=== PATIENT | male | born 1970 | race Caucasian/White ===

== ENCOUNTER → 2021-04-27 | Day surgery (SDC) | payer OTHER, MEDICARE ==
[~2021-04-27] MED LIST: ALLOPURINOL 10100 M3 PO; ATORVASTATIN CA80 MG PO; BAYER CHEWABLE81 MG PO; FENOFIBRATE48 MG PO; FISH OIL 1,0001 EAC9 PO; FUROSEMIDE 40 M40 MG PO; GLIPIZIDE ER5 MG PO; LEXAPRO 10 MG T10 M2 PO; MULTI VITAMIN1 EACH PO; NEURONTIN100 MG PO; NITROSTAT0.4 M1 SUBLING; NORCO5 PO; OMEPRAZOLE40 MG PO; TOPROL XL100 MG PO; VITAMIN D325 MC3 PO; ZYRTEC10 M5 PO
--- NOTE | ~2021-04-27 | OP ---
[address] [address] OPERATIVE REPORT Name: JEFF WEBSTER Room: [facility]#: [id number] Admission: 04/27/21 Attend Phys: Antonio Foss Discharge: Date of : 70 Report #: [id number] THIS REPORT FOR: cc: ALEXA JOAQUIN RN ALEXA ANDREA RN Antonio Camilo MD ~ DOC #: [id number] Antonoi Foss MD DATE OF SURGERY: 04/27/2021 PREOPERATIVE DIAGNOSIS: End-stage renal disease. POSTOPERATIVE DIAGNOSIS: End-stage renal disease. OPERATION: 1. Laparoscopic placement of tunneled intraperitoneal catheter. 2. Laparoscopic omentopexy. SURGEON: Antonio Foss MD. ANESTHESIA: General. ESTIMATED BLOOD LOSS: Minimal. SPECIMEN: None. DESCRIPTION OF PROCEDURE: After informed consent was obtained, the patient was brought to the operating room and placed supine. SCDs were placed and working, preoperative antibiotics were administered, general anesthesia was induced. The abdomen was prepped and draped in the usual sterile fashion. A 5 mm incision was made in the left upper quadrant. A 5 mm trocar was placed under direct vision. Pneumoperitoneum was established. Left-sided 5 mm trocar was placed. I grasped the omentum and brought it up to the right upper quadrant. A PMI suture passer was used with a 2-0 Vicryl suture to take it through the omentum and then back out through the fascia. This performed the omentopexy. A left rectus sheath 8 mm trocar was placed 3 cm above the umbilicus. A 62 cm Covidien catheter was placed through the 8 mm trocar. The trocar was then removed and the catheter was pulled back so that the internal cuff was in the rectus sheath. The catheter was then tunneled to the left upper quadrant of the abdomen. It flushed easily with 750 mL of heparinized saline. It drained easily as well. The ports were removed under direct vision. The skin was closed with 4-0 Monocryl. Incisions were dressed with Steri-Strips. COMPLICATIONS: [place] [address] OPERATIVE REPORT Name: JEFF WEBSTER Room: [facility]#: [id number] Admission: 04/27/21 Attend Phys: Antonio Foss Discharge: Date of : 70 Report #: [id number] DISPOSITION: The patient was taken to recovery in satisfactory condition. MD MANOJ Gonzalez/NIS By: [id number] Foss MD /nt
[2021-04-27 07:20] LABS: HEMATOCRIT 32.3 % (42.0-52.0); MCH 32.1 pg (26.0-34.0); MCHC 34.1 g/dL (28.0-37.0); MCV 94.1 fL (80.0-100.0); MPV 8.2 fl. (7.2-11.1); RBC 3.43 mil/uL (4.50-6.00); RDW-CV 14.9 % (10.5-14.5); WBC 9.5 thou/uL (4.0-11.0)
[2021-04-27 07:26] LABS: CALCIUM 7.2 mg/dL (8.5-10.1); CREATININE 9.9 mg/dL (0.6-1.3); POTASSIUM 4.3 mmol/L (3.5-5.1)
--- NOTE | 2021-04-27 14:49 | EKG ---
[place] [address] ELECTROCARDIOGRAM REPORT Name: JEFF WEBSTER Room: [facility]#: [id number] Admission: 04/27/21 Attend Phys: Antonio Loomis Discharge: Date of : 70 Date of Service: 04/27/2148 Report #: [id number] THIS REPORT FOR: //name// [facility] Test Date: 2021-04-27 Test Time: 06:48:38 Pat Name: JEFF WEBSTER Department: Room: Gender: Construction Safety Consultant: Pedro TURNER : 1970 Requested By: Antonio Foss Order Number: [id number] Loco MD: Andrés Oswald Measurements Intervals [place] Rate: 67 P: 63 CA: 185 QRS: 4 QRSD: 115 T: 34 QT: 469 QTc: 495 Interpretive Statements Sinus rhythm poor r wave progression Nonspecific intraventricular conduction delay No previous ECG available for comparison Electronically Signed On 04-27-2021 14:49:00 CDT by Andrés Oswald [email or web address] <ELECTRONICALLY SIGNED> By: Andrés Oswald MD, [facility] 04/27/21 1449 7 Andrés Oswald MD, [facility] /EPI
== END | disposition home or self-care (01) ==
LOC: M.SUR 05:59
PROVIDERS: ATTEND Surgery
DX: I12.0 Hypertensive chronic kidney disease with stage 5 chronic kidney disease or end stage renal disease (principal); N18.6 End stage renal disease; I25.2 Old myocardial infarction; G47.30 Sleep apnea, unspecified; K21.9 Gastro-esophageal reflux disease without esophagitis; F17.210 Nicotine dependence, cigarettes, uncomplicated; Z98.890 Other specified postprocedural states; Z79.899 Other long term (current) drug therapy